=== PATIENT | male | born 1980 | race Caucasian/White ===

== ENCOUNTER 2019-02-10 12:53 | Emergency (ER) | payer OTHER ==
[~2019-02-10] VITALS: Ht 200.7 cm; Wt 122.5 kg
[2019-02-10 12:54] VITALS: BP 144/91
[2019-02-10] MEDS ORDERED: INDOMETHACIN 5050 M1 PO (13:22)
== END 2019-02-10 13:38 | disposition home or self-care (01) ==
LOC: ER 12:53
DX: M10.071 Idiopathic gout, right ankle and foot (principal); F17.290 Nicotine dependence, other tobacco product, uncomplicated